=== PATIENT | male | born 1950 | race Caucasian/White ===

== ENCOUNTER → 2016-08-14 | Outpatient (CLI) | payer BC ==
--- NOTE | 2016-08-14 07:42 | PCM.PRNOTE ---
- Free Text/Narrative Note: Lexiscan Indication SOB HTN abnormal ECG Patient was supervised today during infusion portion of the stress test. The patient received Regadenoson 0.4 mg IV and nuclear agent using standard protocol. Sestamibi Tm99 25 Mci was gievn afterwards Baseline blood pressure is 158/87 with a heart rate 84 EKG sinus rhythm with ST abnormalities, II III aVF, V5 V6 Vital signs at injection: Peak blood pressure 163/82 with a heart rate of 91 Vital signs at 4 minutes post injection: Peak blood pressure 162/76with a heart rate of 76 EKG sinus rhythm without further ST changes Patient denied any side effect Adverse effects from Indira scan none Test done due to end of protocol Impression 1. electrocardiographically nondiagnostic for ischemia due to chemical protocol 2. nuclear imaging pending
--- NOTE | 2016-08-20 08:58 | NM ---
EXAMINATION: Nuclear medicine myocardial perfusion study HISTORY: Hypertension. PROCEDURE: Following intravenous administration of 0.4 mg of Lexiscan and 27.5 mCi of technetium 99m sestamib i, stress SPECT images including gating imaging was performed. FINDINGS: Stress myocardial SPECT images demonstrates mildly decreased perfusion along the inferior wall. Revi hutson the source images this is likely diaphragmatic attenuation. There is also a trace decreased pe rfusion along the anteroseptal wall. Review of gated images demonstrates normal wall motion, contractility and wall thickening. The left ventricular ejection fraction is 57 %. The left ventricular chamber size is normal. IMPRESSION: 1. Mildly decreased perfusion along the inferior wall, correlate with rest imaging. 2. Normal ventricular chamber size and function with ejection fraction of 57 %.
== END ==
LOC: MW.NM 06:53
PROVIDERS: ATTEND Student in an Organized Health Care Education/Training Program
DX: I10 Essential (primary) hypertension (principal)
CPT/HCPCS: 78451; 93017; A9500; J2785

== ENCOUNTER → 2016-08-28 | Outpatient (CLI) | payer BC ==
--- NOTE | 2016-09-19 11:27 | NM ---
EXAM DATE: 08/28/16 PATIENT'S AGE: 66 REPORT ADDENDUM ADDENDUM: Additional images were obtained at rest following the administration of 27.5 mCi of technetium 99m labeled sestamibi. FINDINGS/IMPRESSION: Overall the perfusion pattern at rest is similar to the stress imaging. There is a grossly stable mildly decreased area of perfusion along the inferior wall. No definite evidence of myocardial perfusion. Wall motion and ejection fraction are similar with an EF of 58%. TID is 1.1 Addendum Dictated by: Sumeet Parada MD <Electronically signed by Sumeet Parada MD in [place]> 08/28/16 1606 , 1602 , 1602 EXAMINATION: Nuclear medicine myocardial perfusion study HISTORY: Hypertension. PROCEDURE: Following intravenous administration of 0.4 mg of Lexiscan and 27.5 mCi of technetium 99m sestamibi, stress SPECT images including gating imaging was performed. FINDINGS: Stress myocardial SPECT images demonstrates mildly decreased perfusion along the inferior wall. Reviewing the source images this is likely diaphragmatic attenuation. There is also a trace decreased perfusion along the anteroseptal wall. Review of gated images demonstrates normal wall motion, contractility and wall thickening. The left ventricular ejection fraction is 57 %. The left ventricular chamber size is normal. IMPRESSION: 1. Mildly decreased perfusion along the inferior wall, correlate with rest imaging. 2. Normal ventricular chamber size and function with ejection fraction of 57 %. Dictated by: Sumeet Parada MD <Electronically signed by Sumeet Parada MD in [place]> 08/20/16 at 0855 2 2 Doc Number: [id number] Copies To: Rony Katz MD; Jeramy Maher MD~ [facility]
== END ==
LOC: MW.NM 12:20
PROVIDERS: ATTEND Student in an Organized Health Care Education/Training Program
DX: I10 Essential (primary) hypertension (principal)
CPT/HCPCS: 78451; A9500